=== PATIENT | female | born 1995 | race Caucasian/White ===

== ENCOUNTER 2020-03-08 18:15 | Outpatient (CLI) | payer MEDICAID ==
[2020-03-08 19:26] LABS: APPEARANCE,URINE CLOUDY; BILIRUBIN,URINE NEGATIVE (NEGATIVE); COLOR,URINE YELLOW; GLUCOSE, URINE NEGATIVE (NEGATIVE); KETONES,URINE NEGATIVE (NEGATIVE); LEUKOCYTE ESTERASE,URINE LARGE (NEGATIVE); NITRITE,URINE NEGATIVE (NEGATIVE); PROTEIN,URINE 100 mg/dL (NEGATIVE); URINE SPECIFIC GRAVITY 1.006; UROBILINOGEN,URINE NEGATIVE mg/dL (<2.0)
[2020-03-08 19:30] LABS: URINE AMPHETAMINES SCREEN NEGATIVE; URINE BARBITURATES SCREEN NEGATIVE; URINE BENZODIAZEPINES SCREEN NEGATIVE; URINE COCAINE SCREEN NEGATIVE; URINE METHADONE SCREEN NEGATIVE; URINE PHENCYCLIDINE SCREEN NEGATIVE
[2020-03-08 19:56] LABS: URINE MARIJUANA (THC) SCREEN UNCONFIRMED POSITIVE
[2020-03-08] MEDS ORDERED: NIFEDIPINE 10 MG CAPSULE PO ONE ×3 (20:15→21:31)
[2020-03-08] MEDS ORDERED: NIFEDIPINE 10 MG CAPSULE ONE ×3 (20:17→21:27)
--- NOTE | 2020-03-08 23:35 | RADIOLOGY REPORT (SQ) ---
EXAM DESCRIPTION: US LIMITED COMPLETED DATE/TME: 03/08/2020 22:58 CLINICAL HISTORY: 25 years Female, contractions, cervical length Comparison: None. TECHNIQUE/LIMITATION: Targeted OB sonogram for requested parameters only. FINDINGS: Single IUP EGA is 29w5d with SELMA of 05/19/2020 EFW is 1510-g at 61% (Ralph) Cardiac activity: 149-bpm. KIRIT: 18.9-cm Placenta: Posterior. No demonstrated abruption or previa. (Imaging note: Ultrasound does not detect most cases of abruption and "placental abruption" is considered a clinical diagnosis.) Presentation: Vertex. Cervical length: 3.0-cm. Small fluid/funneling at the proximal aspect of the cervical canal measures up to 0.4 cm diameter. IMPRESSION: Targeted OB sonogram for requested parameters
== END 2020-03-08 23:16 | disposition home or self-care (01) ==
LOC: LC 18:15
PROVIDERS: ATTEND Obstetrics & Gynecology Gynecology
DX: O60.02 Preterm labor without delivery, second trimester (principal); Z3A.28 28 weeks gestation of pregnancy; Z02.83 Encounter for blood-alcohol and blood-drug test
CPT/HCPCS: 59899; 81001; 80307; 76815; G0480 ×2; J3490; 80349

== ENCOUNTER 2020-04-17 08:07 | Inpatient (IN) | payer MEDICAID ==
[2020-04-17] MEDS ORDERED: RINGERS SOLUTION,LACTATED 1,000 ML IV ONE (08:44)
[2020-04-17] MEDS ORDERED: RINGERS SOLUTION,LACTATED 500 ML IV ONE (08:44)
[2020-04-17] MEDS ORDERED: DEXTROSE 5%-LACTATED RINGERS 1,000 ML IV PRN (08:44)
[2020-04-17 08:46] LABS: APPEARANCE,URINE CLOUDY; BILIRUBIN,URINE NEGATIVE (NEGATIVE); COLOR,URINE YELLOW; GLUCOSE, URINE NEGATIVE (NEGATIVE); KETONES,URINE NEGATIVE (NEGATIVE); LEUKOCYTE ESTERASE,URINE SMALL (NEGATIVE); NITRITE,URINE NEGATIVE (NEGATIVE); PROTEIN,URINE NEGATIVE (NEGATIVE); URINE SPECIFIC GRAVITY 1.003; UROBILINOGEN,URINE NEGATIVE mg/dL (<2.0)
[2020-04-17] MEDS ORDERED: MISOPROSTOL 0.2 MG TABLET ONE (08:47)
[2020-04-17] MEDS ORDERED: OXYTOCIN 10 UNIT/ML VIAL ONE (08:47)
[2020-04-17] MEDS ORDERED: LIDOCAINE 1% INJ-PF (10 MG/ML) 30 ML SDV ONE (08:48)
[2020-04-17] MEDS ORDERED: BETAMET ACET/BETAMET NA INJ 6 MG/1 ML ONE ×2 (08:48→20:38)
[2020-04-17] MEDS ORDERED: OXYTOCIN/0.9 % SODIUM CHLORIDE 30 UNIT/500 ML RTUINJ ONE (08:48)
[2020-04-17] MEDS ORDERED: PENICILLIN G-K 5 MILLION UNIT VIAL ONE (08:48)
[2020-04-17] MEDS ORDERED: BETAMET ACET/BETAMET NA INJ 6 MG/1 ML IM ONE ×2 (08:49→21:00)
[2020-04-17] MEDS ORDERED: PENICILLIN G POTASSIUM 5,000,000 UNIT in DEXTROSE 5%-WATER 100 ML IV ONE (09:00)
[2020-04-17 09:01] LABS: URINE AMPHETAMINES SCREEN NEGATIVE; URINE BARBITURATES SCREEN NEGATIVE; URINE BENZODIAZEPINES SCREEN NEGATIVE; URINE COCAINE SCREEN NEGATIVE; URINE MARIJUANA (THC) SCREEN NEGATIVE; URINE METHADONE SCREEN NEGATIVE; URINE PHENCYCLIDINE SCREEN NEGATIVE
[2020-04-17 09:21] LABS: ABSOLUTE EOSINOPHILS # (AUTO) 0.3 10^3/uL (0.0-0.6); ABSOLUTE LYMPHOCYTES (AUTO) 1.8 10^3/uL (0.5-4.7); ABSOLUTE NEUT (AUTO) 5.6 10^3/uL (1.7-8.2); BASOPHILS % (AUTO) 0.5 % (0-2); EOSINOPHILS % (AUTO) 3.2 % (0-6); HEMATOCRIT 37.4 % (36.0-47.0); HEMOGLOBIN 12.4 g/dL (12.0-15.5); LYMPHOCYTES % (AUTO) 20.8 % (13-45); MEAN CORPUSCULAR HEMOGLOBIN 25.8 pg (27.0-33.4); MEAN CORPUSCULAR HGB CONC 33.1 g/dL (32.0-36.0); MEAN CORPUSCULAR VOLUME 78 fl (80-97); MONOCYTES % (AUTO) 11.4 % (3-13); PLATELET COUNT 183 10^3/uL (150-450); RED CELL DISTRIBUTION WIDTH 13.4 % (11.5-14.0); SEGMENTED NEUTROPHILS % (AUTO) 64.1 % (42-78); TOTAL CELLS COUNTED % (AUTO) 100 %; WHITE BLOOD COUNT 8.7 10^3/uL (4.0-10.5)
[2020-04-17 10:52] LABS: CHLAM PCR NOT DETECTED (NOT DETECT)
--- NOTE | 2020-04-17 11:44 | RADIOLOGY REPORT (SQ) ---
EXAM DESCRIPTION: U/S OB LIMITED IMAGES COMPLETED DATE/TIME: 04/17/2020 11:19 am REASON FOR STUDY: PPROM, need fluid, presentation, EFW COMPARISON: 03/08/2020. TECHNIQUE: Limited transabdominal grayscale ultrasound for evaluation of specific requested obstetri cheri parameters. LIMITATIONS: None. FINDINGS: EGA: 35 week 2 day. SELMA: 05/20/2020. EFW: 2673 g. PERCENTILE: 55%. CERVICAL LENGTH: 3.5 cm Closed. KIRIT: 9.2 cm. Largest pocket 3.9 cm. FHR: 126 beats per minute. PRESENTATION: Cephalic. PLACENTA: Posterior ANATOMY: Not assessed OTHER: No other significant findings. IMPRESSION: LIMITED OBSTETRICAL ULTRASOUND WITH MEASURED PARAMETERS DELINEATED ABOVE. Trimester of : Third trimester - 28 weeks to delivery. TECHNICAL DOCUMENTATION: JOB ID: [id number] 2010 [employer]- All Rights Reserved Reading location - IP/workstation name: [email or web address]
--- NOTE | 2020-04-17 12:02 | Admission Physical ---
Datetime Report Generated by CPN: 04/17/2020 12:01 CURRENT ADMISSION Chief Complaint: Suspected Ruptured Membranes Indication for Induction: PROM Admit Impression : , Intrauterine ; No Active Labor; Ruptured Membranes Admit Plan: Admit to Unit; Initiate Labor Protocol ALLERGIES Medication Allergies: No Medication Allergies: No Known Allergies (04/17/2020) Latex: No Latex Allergies OBSTETRICAL HISTORY EDC: 05/26/2020 00:00 : 2 Para: 0 Term: 0 : 0 SAB: 1 IAB: 0 Ectopic: 0 Livin Cesareans: 0 VBACs: 0 Multiple Births: 0 Gestational Diabetes: No Rh Sensitization: No Incompetent Cervix: No HUSAM: No Infertility: No ART Treatment: No Uterine Anomaly: No IUGR: No Hx Previous C/S: No Macrosomia: No Hx Loss/Stillborn: No PIH: No Hx : No Placenta Previa/Abruption: No Depression/PP Depression: No PTL/PROM: Yes Post Hemorrhage: No Current Procedures: Ultrasound Obstetrical History Comments: G1- 2018 10 weeks G2- Current late to [facility] SEE RECORDS Alcohol: No Marijuana : Yes Marijuana Comments: pt states one month ago Cocaine: No Other Illicit Drugs: No Cigarettes: Former Smoker. [id number] MEDICAL HISTORY Diabetes: No Blood Transfusion: No Pulmonary Disease (Asthma, TB): No Breast Disease: No Hypertension: No Velvet Cutter Surgery: No Heart Disease: No Hosp/Surgery: No Autoimmune Disorder: No Anesthetic Complications: No Kidney Disease: Yes Abnormal Pap Smear: No Neuro/Epilepsy: No Psychiatric Disorders: Yes Other Medical Diseases: No Hepatitis/Liver Disease: No Significant Family History: No Varicosities/Phlebitis: No Trauma/Violence : No Thyroid Dysfunction: No Medical History Comments: depression, anxiety, UTIs as a child INFECTIOUS HISTORY Gonorrhea: No Genital Herpes: No Chlamydia: No Tuberculosis: No Syphilis: No Hepatitis: No HIV/AIDS Exposure: No Rash or Viral Illness: No HPV: No PHYSICAL EXAM General: Normal HEENT: Normal Neurologic: Normal Thyroid: Deferred Heart: Normal Lungs: Normal Breast: Deferred Back: Normal Abdomen: Normal Genitourinary Exam: Normal Extremities: Normal DTRs: Normal Pelvic Type: Adequate Vital Signs: Reviewed VAGINAL EXAM Dilatation: 2 Effacement: 50 Station: -3 Contraction Comments: irreg MEMBRANES Membranes: Ruptured Amniotic Fluid Color: Clear FETUS A EGA: 34.3 Monitoring: External US FHR- Baseline: 120 Variability: Moderate 6-25bpm Accelerations: 15X15 Decelerations: None FHR Category: Category I Estimated Weight (gm): 2673 Presentation: Vertex Admit Comment: 25yo at 34+3ega presents for suspected PPROM at 0630, reportedly clear fluid. Late onset of care at 15wks, Transfer of care at 31wks from [facility] to [facility]. +THC on labor and delivery on 03/25/2020. negative today. +Actimprom. Unknown GC/CT and unknow GBS - done at admission. routine labs ordered. Steroids. Will try to delay delivery for antibiotics and steroids. Will repeat Steroids at 12 hours plan for delivery around 24 hours post steroids. Plan for augmentation/induction depending on cervical changes after midnight tonight. NICU personnel aware of plan. PLANS FOR LABOR AND DELIVERY Labor and Delivery: None Feeding Preference: Breast Benefit of Breast Feed Discussed: Yes Circumcision: Yes INFORMED CONSENT Informed Consent Obtained: Vaginal Delivery; Induction of Labor; Risks, Benefits and Alternatives Discussed Signature: with User ID: [email or web address]
[2020-04-17] MEDS: PENICILLIN G POTASSIUM 2,500,000 UNIT in DEXTROSE 5%-WATER 50 ML IV SCH ×3 (12:43→21:09)
[2020-04-17] MEDS: RINGERS SOLUTION,LACTATED 1,000 ML IV PRN (12:43)
--- NOTE | 2020-04-17 17:39 | L&D Progress Notes ---
PROGRESS NOTES Datetime Report Generated by CPN: 04/17/2020 17:39 PROGRESS NOTE Procedures: Sterile Vag Exam Plan: Induction Informed Consent Obtained: Vaginal Delivery; Induction of Labor; Risks, Benefits and Alternatives Discussed Vital Signs : Reviewed Comment: reviewed that baby is having intermittent what appears to be decelerations. D/w NICU and patient plan of care change now to proceed with delivery and give Celestone 2nd dose at 12 hours instead of waiting for 24 hours. Also reviewed with patient pain control options and timing and plan for pitocin. cvx 2-3. pitocin ordered. Anticipate . O/w FHR tracing is reassuring. VAGINAL EXAM Dilatation: 2 Effacement: 50 Station: -3 Contractions: irreg LAST VAGINAL EXAM-NURSING Nursing Exam Dilitation: 2.0 Nursing Exam Effacement: 50 Nursing Exam Station: -3 Nursing Exam Contractions: utd due to pt getting bedside u/s MEMBRANES Membranes: Ruptured Amniotic Fluid Color: Clear FETUS A FHR - Baseline: 125 Monitoring: External US Accelerations: 15X15 Decelerations: None FHR Category: Category I Estimated Weight (gm): 2673 Presentation: Vertex SIGNATURE SIGNATURE: [id number] Signature: with User ID: [email or web address]
[2020-04-17] MEDS ORDERED: ONDANSETRON HCL INJ/PF 4 MG/2 ML SDV IV PRN (21:49)
[2020-04-17] MEDS ORDERED: NALBUPHINE HCL INJ 10 MG/1 ML AMPULE ONE (21:53)
[2020-04-17] MEDS ORDERED: ONDANSETRON HCL INJ/PF 4 MG/2 ML SDV ONE (21:53)
[2020-04-17] MEDS ORDERED: NALBUPHINE HCL INJ 10 MG/1 ML AMPULE INJ ONE (22:00)
[2020-04-17] MEDS ORDERED: EPHEDRINE SULFATE INJ 50 MG/1 ML AMPULE ONE (23:03)
[2020-04-17] MEDS ORDERED: FENTANYL/BUPIVACAINE/NS/PF 300 MCG/150 ML RTUINJ EPI ONE (23:03)
[2020-04-17] MEDS ORDERED: ROPIVACAINE HCL 0.2% INJ/PF (2 MG/ML) 20 ML SDV ONE (23:04)
[2020-04-18] MEDS: PENICILLIN G POTASSIUM 2,500,000 UNIT in DEXTROSE 5%-WATER 50 ML IV SCH (00:59)
[2020-04-18] MEDS: RINGERS SOLUTION,LACTATED 1,000 ML IV PRN (01:02)
[2020-04-18] MEDS ORDERED: GLYCERIN/WITCH HAZEL LEAF 1 EACH MED..WIPE TP PRN (02:02)
[2020-04-18] MEDS ORDERED: ZOLPIDEM TARTRATE 5 MG TABLET PO PRN (02:02)
[2020-04-18] MEDS ORDERED: DIPH/PERTUSS(ACELL)/TETANUS VAC/PF 0.5 ML SYR (>=10YO) IM PRN (02:02)
[2020-04-18] MEDS ORDERED: ACETAMINOPHEN 325 MG TABLET PO PRN (02:02)
[2020-04-18] MEDS ORDERED: MAG HYDROX/AL HYDROX/SIMETH SUSP 30 ML UDCUP PO PRN (02:02)
[2020-04-18] MEDS ORDERED: DIPHENHYDRAMINE HCL 25 MG CAPSULE PO PRN (02:02)
[2020-04-18] MEDS ORDERED: ACETAMINOPHEN WITH CODEINE #3 TABLET PO PRN ×2 (02:02)
[2020-04-18] MEDS ORDERED: ACETAMINOPHEN 650 MG SUPP.RECT PR PRN (02:02)
[2020-04-18] MEDS ORDERED: BENZOCAINE/MENTHOL AEROSOL SPRAY 56 ML TOP PRN (02:02)
[2020-04-18] MEDS ORDERED: MEASLES,MUMPS&RUBELLA VACC/PF 0.5 ML VIAL SUBCUT PRN (02:02)
[2020-04-18] MEDS ORDERED: PSEUDOEPHEDRINE HCL 30 MG TABLET PO PRN (02:02)
[2020-04-18] MEDS ORDERED: DIBUCAINE 1% OINTMENT 28 GM TP PRN (02:02)
[2020-04-18] MEDS ORDERED: VARICELLA VACC/PF (1350 UNIT/0.5 ML) 0.5 ML VIAL SUBCUT PRN (02:02)
[2020-04-18] MEDS ORDERED: OXYTOCIN/0.9 % SODIUM CHLORIDE 30 UNIT/500 ML RTUINJ IV PRN (02:02)
[2020-04-18] MEDS ORDERED: MAGNESIUM HYDROXIDE SUSP 30 ML UDCUP PO PRN (02:02)
[2020-04-18] MEDS ORDERED: FAMOTIDINE 20 MG TABLET PO PRN (02:02)
[2020-04-18] MEDS: IBUPROFEN 800 MG TABLET PO SCH ×3 (05:05→21:30)
[2020-04-18] MEDS: PRENATAL VITAMIN W DHA CAPSULE PO SCH (10:22)
[2020-04-18] MEDS: DOCUSATE SODIUM 100 MG CAPSULE PO SCH ×2 (10:22→17:54)
[2020-04-18] MEDS: FERROUS SULFATE 325 MG TABLET PO SCH ×2 (10:22→17:54)
[2020-04-18] MEDS: SENNOSIDES/DOCUSATE 8.6-50 MG 1 EACH TABLET PO SCH (10:22)
--- NOTE | 2020-04-18 10:59 | PDOC PROGRESS REPORT ---
Subjective-OB Progress Note for:: 04/18/20 Subjective: Doing well, OOB walking to nursery, states baby doing well, no Oxygen, voiding, scant bleeding Physical Exam (OB) Vital Signs: Temp Pulse Resp BP Pulse Ox 97.5 F 75 16 110/54 L 98 04/18/20 08:31 04/18/20 08:02 04/18/20 08:02 04/18/20 08:02 04/18/20 08:02 Intake & Output 04/17/20 04/18/20 04/19/20 06:59 06:59 06:59 Intake Total 1240 Output Total 700 Balance 540 Weight 71.3 kg - PIH/Pre-Eclampsia Clonus: Negative Headache: Absent Epigastric Pain: No Visual Changes: No - Maternal Morbidity 59. Maternal Morbidity (serious complications experinced by the mother associated with labor and delivery: None of the above - Lochia Lochia Amount: Scant < 10 ml Lochia Color: Rubra/Red - Abdomen Description: Soft, Round Hernia Present: No Fundal Description: Firm, Midline Fundal Height: u/u - u/2 Objective-Diagnostic Laboratory: 04/17/20 09:05 Assessment and Plan(PN) - Assessment and Plan (1) Vaginal delivery Is this a current diagnosis for this admission?: Yes (2) premature rupture of membranes Qualifiers: PROM onset of labor timing: onset of labor within 24 hours of rupture Qualified Code(s): O42.019 - premature rupture of membranes, onset of labor within 24 hours of rupture, unspecified trimester Is this a current diagnosis for this admission?: Yes - Time Spent with Patient Time with patient: Less than 15 minutes Medications reviewed and adjusted accordingly: Yes - Disposition Anticipated Discharge Disposition: Home, Self Care Anticipated Discharge Timeframe: within 48 hours
[2020-04-19 06:35] LABS: HEMATOCRIT 35.3 % (36.0-47.0); HEMOGLOBIN 11.4 g/dL (12.0-15.5); MEAN CORPUSCULAR HEMOGLOBIN 25.7 pg (27.0-33.4); MEAN CORPUSCULAR HGB CONC 32.2 g/dL (32.0-36.0); MEAN CORPUSCULAR VOLUME 80 fl (80-97); PLATELET COUNT 186 10^3/uL (150-450); RED BLOOD COUNT 4.42 10^6/uL (3.72-5.28); RED CELL DISTRIBUTION WIDTH 13.9 % (11.5-14.0); WHITE BLOOD COUNT 15.1 10^3/uL (4.0-10.5)
[2020-04-19] MEDS: IBUPROFEN 800 MG TABLET PO SCH ×3 (06:57→22:00)
[2020-04-19] MEDS: DOCUSATE SODIUM 100 MG CAPSULE PO SCH ×2 (09:17→18:00)
[2020-04-19] MEDS: SENNOSIDES/DOCUSATE 8.6-50 MG 1 EACH TABLET PO SCH (09:17)
[2020-04-19] MEDS: FERROUS SULFATE 325 MG TABLET PO SCH ×2 (09:17→18:00)
[2020-04-19] MEDS: PRENATAL VITAMIN W DHA CAPSULE PO SCH (09:28)
--- NOTE | 2020-04-19 09:59 | PDOC PROGRESS REPORT ---
Subjective-OB Progress Note for:: 04/19/20 - PP Day #1, doing weill, UOB, voiding, A+,, Rubella immune, Physical Exam (OB) Vital Signs: Temp Pulse Resp BP Pulse Ox 97.8 F 62 16 113/83 100 04/19/20 07:56 04/19/20 07:56 04/19/20 07:56 04/19/20 07:56 04/19/20 07:56 Intake & Output 04/18/20 04/19/20 04/20/20 06:59 06:59 06:59 Intake Total 1240 3200 Output Total 700 Balance 540 3200 Weight 71.3 kg - General General Appearance: Appears well, Alert In distress: None - PIH/Pre-Eclampsia Clonus: Negative Headache: Absent Epigastric Pain: No Visual Changes: No - Maternal Morbidity 59. Maternal Morbidity (serious complications experinced by the mother associated with labor and delivery: None of the above - Lochia Lochia Amount: Scant < 10 ml Lochia Color: Serosa/Brown - Abdomen Description: Soft Hernia Present: No Fundal Description: Firm, Midline Fundal Height: u/u - u/2 - Respiratory Respiratory Status: No respiratory distress - Abdominal Distension: No distension - Genitourinary Genitourinary Note: voiding - Extremities Upper extremity: Normal inspection Lower extremities: Normal inspection - Neurological Cognition: Normal Orientation: AAOx4 - Psychological Associated symptoms: Normal affect, Normal mood - Skin Skin Temperature: Warm Skin Moisture: Dry Objective-Diagnostic Laboratory: 04/19/20 06:24 04/19/20 06:24 WBC 15.1 H RBC 4.42 Hgb 11.4 L Hct 35.3 L MCV 80 MCH 25.7 L MCHC 32.2 RDW 13.9 Plt Count 186 04/17/20 08:55 Vaginal/Anorectal Group B Streptococcus Culture - Final NO GROUP B STREPTOCOCCUS RECOVERED Assessment and Plan(PN) - Assessment and Plan (1) premature rupture of membranes Qualifiers: PROM onset of labor timing: onset of labor within 24 hours of rupture Qualified Code(s): O42.019 - premature rupture of membranes, onset of labor within 24 hours of rupture, unspecified trimester Is this a current diagnosis for this admission?: Yes (2) Vaginal delivery Is this a current diagnosis for this admission?: Yes Plan:: Routine PP orders, ambulation encouraged. - Time Spent with Patient Time with patient: Less than 15 minutes Medications reviewed and adjusted accordingly: Yes - Disposition Anticipated Discharge Disposition: Home, Self Care Anticipated Discharge Timeframe: within 24 hours
[2020-04-20] MEDS: IBUPROFEN 800 MG TABLET PO SCH (05:30)
[2020-04-20 07:57] VITALS: BP 113/67
[2020-04-20] MEDS: SENNOSIDES/DOCUSATE 8.6-50 MG 1 EACH TABLET PO SCH (09:20)
[2020-04-20] MEDS: FERROUS SULFATE 325 MG TABLET PO SCH (09:20)
[2020-04-20] MEDS: DOCUSATE SODIUM 100 MG CAPSULE PO SCH (09:20)
--- NOTE | 2020-04-20 11:03 | PDOC DISCHARGE SUMMARY ---
Impression - Admit/DC Date/PCP Admission Date/Primary Care Provider: 04/17/20 08:57 EDI FARFAN MD Discharge Date: 04/20/20 - Discharge Diagnosis (1) premature rupture of membranes Is this a current diagnosis for this admission?: Yes (2) Vaginal delivery Is this a current diagnosis for this admission?: Yes - Additional Information Discharge Diet: Regular Discharge Activity: Balance Activity w/Rest, Pelvic Rest Referrals: EDI FARFAN MD [Primary Care Provider] - Prescriptions: Ibuprofen [Motrin 800 mg Tablet] 800 mg PO Q8HP PRN #60 tablet PRN Reason: Home Medications: Pediatric Multivitamin No.49 [Flintstones Gummies] 1 each PO DAILY 03/08/20 Ibuprofen [Motrin 800 mg Tablet] 800 mg PO Q8HP PRN #60 tablet 04/20/20 Hospital Course 59. Maternal Morbidity (serious complications experinced by the mother associated with labor and delivery: None of the above Results Laboratory Results: WBC 15.1 10^3/uL (4.0-10.5) H 04/19/20 06:24 RBC 4.42 10^6/uL (3.72-5.28) 04/19/20 06:24 Hgb 11.4 g/dL (12.0-15.5) L 04/19/20 06:24 Hct 35.3 % (36.0-47.0) L 04/19/20 06:24 MCV 80 fl (80-97) 04/19/20 06:24 MCH 25.7 pg (27.0-33.4) L 04/19/20 06:24 MCHC 32.2 g/dL (32.0-36.0) 04/19/20 06:24 RDW 13.9 % (11.5-14.0) 04/19/20 06:24 Plt Count 186 10^3/uL (150-450) 04/19/20 06:24 Lymph % (Auto) 20.8 % (13-45) 04/17/20 09:05 [place] % (Auto) 11.4 % (3-13) 04/17/20 09:05 Eos % (Auto) 3.2 % (0-6) 04/17/20 09:05 Baso % (Auto) 0.5 % (0-2) 04/17/20 09:05 Absolute Neuts (auto) 5.6 10^3/uL (1.7-8.2) 04/17/20 09:05 Absolute Lymphs (auto) 1.8 10^3/uL (0.5-4.7) 04/17/20 09:05 Absolute Monos (auto) 1.0 10^3/uL (0.1-1.4) 04/17/20 09:05 Absolute Eos (auto) 0.3 10^3/uL (0.0-0.6) 04/17/20 09:05 Absolute Basos (auto) 0.0 10^3/uL (0.0-0.2) 04/17/20 09:05 Seg Neutrophils % 64.1 % (42-78) 04/17/20 09:05 Urine Color YELLOW 04/17/20 08:21 Urine Appearance CLOUDY 04/17/20 08:21 Urine pH 7.0 (5.0-9.0) 04/17/20 08:21 Ur Specific [place] 1.003 04/17/20 08:21 Urine Protein NEGATIVE mg/dL (NEGATIVE) 04/17/20 08:21 Urine Glucose (UA) NEGATIVE mg/dL (NEGATIVE) 04/17/20 08:21 Urine Ketones NEGATIVE mg/dL (NEGATIVE) 04/17/20 08:21 Urine Blood SMALL (NEGATIVE) H 04/17/20 08:21 Urine Nitrite NEGATIVE (NEGATIVE) 04/17/20 08:21 Urine Bilirubin NEGATIVE (NEGATIVE) 04/17/20 08:21 Urine Urobilinogen NEGATIVE mg/dL (<2.0) 04/17/20 08:21 Ur Leukocyte Esterase SMALL (NEGATIVE) H 04/17/20 08:21 Urine WBC (Auto) 16 /HPF 04/17/20 08:21 Urine RBC (Auto) 3 /HPF 04/17/20 08:21 Urine Bacteria (Auto) TRACE /HPF 04/17/20 08:21 Squamous Epi Cells Auto 20 /HPF 04/17/20 08:21 Urine Ascorbic Acid NEGATIVE (NEGATIVE) 04/17/20 08:21 Membranes Rupture POSITIVE (NEGATIVE) H 04/17/20 08:21 Urine Opiates Screen NEGATIVE 04/17/20 08:21 Urine Methadone Screen NEGATIVE 04/17/20 08:21 Ur Barbiturates Screen NEGATIVE 04/17/20 08:21 Ur Phencyclidine Scrn NEGATIVE 04/17/20 08:21 Ur Amphetamines Screen NEGATIVE 04/17/20 08:21 U Benzodiazepines Scrn NEGATIVE 04/17/20 08:21 Urine Cocaine Screen NEGATIVE 04/17/20 08:21 U Marijuana (THC) Screen NEGATIVE 04/17/20 08:21 RPR NONREACTIVE (NONREACTIVE) 04/17/20 09:05 Chlamydia DNA (PCR) NOT DETECTED (NOT DETECT) 04/17/20 08:54 N.gonorrhoeae DNA (PCR) NOT DETECTED (NOT DETECT) 04/17/20 08:54 Blood Type A POSITIVE 04/17/20 09:05 Antibody Screen NEGATIVE 04/17/20 09:05 Impressions: Obstetrics Ultrasound 04/17/20 00:00 IMPRESSION: LIMITED OBSTETRICAL ULTRASOUND WITH MEASURED PARAMETERS DELINEATED ABOVE. Trimester of : Third trimester - 28 weeks to delivery. Plan Plan of Treatment: follow up in 4 weeks at [facility] for post check
[2020-04-20] MEDS: PRENATAL VITAMIN W DHA CAPSULE PO SCH (11:23)
--- NOTE | 2020-04-22 07:22 | Delivery Summary ---
Del Sum A-C Datetime Report Generated by CPN: 04/22/2020 07:21 DELIVERY PERSONNEL DELIVERY PERSONNEL: [id number] Delivery Doctor:: Mary Rojas MD NURSING ADMIN:: Josseline Addison NURSING ADMIN Labor and Delivery Nurse:: YI Morales Labor and Delivery Nurse:: Margarita Jo RN Neonatal Nurse Practitioner:: EMMY Logan Nursery Nurse:: Kaylan Suarez RN Nursery Nurse:: GABRIELLA Martines Tech/AIR BRUSH ARTIST: Maria Teresa Romero, LEATHER SPRAYER MATERNAL INFORMATION Delivery Anesthesia: Epidural Medications After Delivery: Pitocin 30 Units in 500ml NS/D5W Estimated Blood Loss (ml): 50 Delivery QBL: 50 Maternal Complications: Premature Rupture of Membranes Provider Comments: VMI delivered in DEVI presentation. No nuchal cord. Shoulders and body delivered without difficulty. Infant to maternal abdomen and delayed cord clamping performed. Cord doubly clamped and cut and to maternal abdomen. Placenta delivered intact spontaneously. FF at U. No perineal lacerations needing repair. Mother stable upon provider leaving the room. Baby to NICU/Nursery. LABOR SUMMARY EDC: 05/26/2020 00:00 No. Babies in Womb: 1 Attempted: No Labor Anesthesia: Epidural LABOR INFORMATION Reason for Induction: Premature Rupture of Membranes Onset of Labor: 04/17/2020 21:30 Complete Dilatation: 04/18/2020 01:10 Oxytocin: Augmentation Group B Beta Strep: 1 NO GROUP B STREPTOCOCCUS RECOVERED Group B Beta Strep: unknown Antibiotics # of Doses: 5 Antibiotics Time of Last Dose: 04/18/2020 01:00 Name of Antibiotic Given: PCN Steroids Given: Full Course; < 24 Hours before Delivery Reason Steroids Not Administered: Not Applicable MEMBRANES Membranes Rupture Method: Spontaneous Rupture of Membranes: 04/17/2020 06:30 Length of Rupture (hr): 19.05 Amniotic Fluid Color: Clear Amniotic Fluid Color: Clear Amniotic Fluid Amount: Moderate Amniotic Fluid Amount: Small Amniotic Fluid Odor: Normal STAGES OF LABOR Stage 1 hr: 3 Stage 1 min: 40 Stage 2 hr: 0 Stage 2 min: 23 Stage 3 hr: 0 Stage 3 min: 4 Total Time in Labor hr: 4 Total Time in Labor min: 7 VAGINAL DELIVERY Episiotomy: None Laceration #1: Perineal Laceration Extension #1: N/A Laceration Repair: No Laceration Repair Note: small bilateral vaginal sidewall abrasions hemostasis, no need for repair Sponge Count Correct: Yes Sharps Count Correct: Yes CSECTION DELIVERY Primary Indication: N/A Secondary Indication: N/A CSection Incision: N/A BABY A INFORMATION Infant Delivery Date/Time: 04/18/2020 01:33 Method of Delivery: Vaginal Method of Delivery: Vaginal Nurse Controlled Delivery: No Born in Route : No : N/A Forceps: N/A Vacuum Extraction: N/A Shoulder Dystocia : No PRESENTATION/POSITION BABY A Presentation: Cephalic Cephalic Presentation: Vertex Vertex Position: Left Occipital Anterior Breech Presentation: N/A PLACENTA INFORMATION BABY A Placenta Delivery Time : 04/18/2020 01:37 Placenta Method of Delivery: Spontaneous Placenta Method of Delivery: Spontaneous Placenta Status: Delivered SCORES BABY A Heart Rate 1 min: >100 bpm Resp Effort 1 min: Good Cry Reflex Irritability 1 min: Cough or Sneeze or Pulls Away Muscle Tone 1 min: Active Motion Color 1 min: Body [place], Extremities Blue Resuscitation Effort 1 min: Tactile Stimulation SCORE 1 MIN: 9 Heart Rate 5 min: >100 bpm Resp Effort 5 min: Good Cry Reflex Irritability 5 min: Cough or Sneeze or Pulls Away Muscle Tone 5 min: Active Motion Color 5 min: Body [place], Extremities Blue Resuscitation Effort 5 min: Tactile Stimulation SCORE 5 MIN: 9 INFORMATION BABY A Gestational Age at Delivery: 34.4 Gestational Status: Late - 34- 36.6 Weeks Infant Outcome : Liveborn Condition : Stable Sex: Male IDENTIFICATION BABY A Verification Date/Time: 04/18/2020 01:47 ID Band Number: [id number] Mother's Name Verified: Yes Infant RN Verifying Infant: CJazmyn Guzmanilin, RN JJazmyn Campbell, RN WEIGHT/LENGTH BABY A Birthweight (gm): 2568 Weight (lb): 5 Weight (oz): 11 Infant Length (in): 17.50 Infant Length (cm): 44.45 CORD INFORMATION BABY A No. Cord Vessels: 3 Nuchal Cord : N/A Cord Blood Taken: Yes-For Storage (Mom's Blood type +) Suction: Mouth; Nose ASSESSMENT BABY A Infant Complications: Multiple Variable Decels Physical Findings at Delivery: Within Normal Limits Physical Findings- Other: infant voided on delivery Respirations: Intercostal Retractions; Nasal Flaring Skin to Skin: Yes Skin to Skin: Yes Used Building Materials Yard Worker/ALS Called : No Care By: GABRIELLA Suarez, GABRIELLA Sánchez, AIR CREW MEMBER Rivka Transferred To: NICU BABY B INFORMATION : N/A SIGNATURES Signature: with User ID: [email or web address]
== END 2020-04-20 13:25 | disposition home or self-care (01) | DRG 807 ==
LOC: LC 08:07 → LR 08:57 → 2S 04-18 03:30
PROVIDERS: ADMIT Student in an Organized Health Care Education/Training Program; ATTEND Student in an Organized Health Care Education/Training Program
PROC: 10E0XZZ Delivery of Products of Conception, External Approach (ICD-10-PCS; principal; 2020-04-18)
DX: O42.013 Preterm premature rupture of membranes, onset of labor within 24 hours of rupture, third trimester (principal); Z37.0 Single live birth; O99.824 Streptococcus B carrier state complicating childbirth; Z20.822 Contact with and (suspected) exposure to COVID-19; Z28.21 Immunization not carried out because of patient refusal; Z87.891 Personal history of nicotine dependence; Z3A.34 34 weeks gestation of pregnancy
CPT/HCPCS: 1967; 36415; 76815; 80307; 81001; 84112; 85025; 85027; 86592; 86850; 86900; 86901; 87081; 87491; 87591; 88307; J0702; J2300; J2405; J2540; J2590; J2795; J3010; J3490; J7060